=== PATIENT | male | born 1995 | race Caucasian/White ===

== ENCOUNTER → 2017-07-23 14:24 | Emergency (ER) | payer BC ==
[~2017-07-23 14:24] MED LIST: ALPRAZolam TAB* 0.5 MG PO ONE
[2017-07-23 16:08] LABS: Hematocrit 50 % (42-52); Hemoglobin 17.4 g/dl (14.0-18.0); Mean Corpuscular HGB Conc 35 g/dl (31-36); Mean Corpuscular Hemoglobin 33 pg (27-31); Mean Corpuscular Volume 93 fL (80-94); Mean Platelet Volume 9 um3 (7.4-10.4); Red Blood Count 5.35 10^6/ul (4.0-5.4); Red Cell Distribution Width 13 % (10.5-15); White Blood Count 10.8 10^3/ul (3.5-10.8)
[2017-07-23 16:21] LABS: ALT 39 U/L (7-52); AST 22 U/L (13-39); Albumin 4.8 g/dL (3.2-5.2); Alkaline Phosphatase 86 U/L (34-104); Anion Gap 10 mmol/L (2-11); BUN/Creatinine Ratio 15.3 (8-20); Blood Urea Nitrogen 15 mg/dL (6-24); CO2 Carbon Dioxide 21 mmol/L (22-32); Calcium 10.3 mg/dL (8.6-10.3); Chloride 105 mmol/L (101-111); EGFR Non-African American 95.6 (>60); Globulin 3.5 g/dL (2-4); Glucose 90 mg/dL (70-100); Potassium 3.8 mmol/L (3.5-5.0); Sodium 136 mmol/L (133-145); Total Protein 8.3 g/dL (6.4-8.9)
[2017-07-23 16:30] LABS: Acetaminophen < 15 mcg/mL; Alcohol < 10 mg/dL (<10); Salicylate < 2.50 mg/dL (<30)
[2017-07-23 16:33] LABS: Benzodiazepine Urine Screen None Detected (None Detect)
[2017-07-23 16:41] LABS: TSH (Thyroid Stimulating Horm) 2.31 mcIU/mL (0.34-5.60)
[2017-07-23 16:54] VITALS: BP 156/93
[2017-07-23 16:59] LABS: Urine Bacteria Absent (Absent); Urine Bilirubin Negative (Negative); Urine Glucose Negative (Negative); Urine Nitrite Negative (Negative)
--- NOTE | 2017-07-23 20:57 | ED ---
Shannan Santamaria Edward, scribed for Tan Lopez on 07/23/17 at 1444 . Psychiatric Complaint - HPI Summary HPI Summary: 21 y/o male presents to ED c/o gradual onset depression and anxiety for the past 10 days. The symptoms are not alleviated by anything. Pt states he just wants to go home and "get out of his depression and anxiety". No SI. Denies hallucinations. No EtOH use. Non-smoker. FHx anxiety, depression, bipolar disorder. - History Of Current Complaint Chief Complaint: EDMentalHealth Time Seen by Provider: 07/23/17 14:42 Hx Obtained From: Patient Onset/Duration: Gradual Onset, Lasting Days - 10 days, Still Present Character: Depressed, Anxious Associated Signs And Symptoms: Negative: Hallucinating Has Suicidal: Denies: Thoughts - Allergies/Home Medications Allergies/Adverse Reactions: Allergies Allergy/AdvReac Type Severity Reaction Status Date / Time Cat Hair Extract Allergy Eyes Verified 07/23/17 14:28 Itchy/Swollen/Red/Watery PMH/Surg Hx/FS Hx/Imm Hx Previously Healthy: No Infectious Disease History: Denies: Traveled Outside the [place] in Last 30 Days - Family History Known Family History: Positive: Other - Depression, anxiety, bipolar disorder - Social History Occupation: Student Lives: With Family Alcohol Use: None Hx Substance Use: No Substance Use Type: Reports: None Hx Tobacco Use: No Smoking Status (MU): Never Smoked Tobacco Review of Systems Constitutional: Negative Eyes: Negative ENT: Negative Cardiovascular: Negative Respiratory: Negative Gastrointestinal: Negative Genitourinary: Negative Musculoskeletal: Negative Skin: Negative Neurological: Negative Positive: Anxious, Depressed All Other Systems Reviewed And Are Negative: Yes Physical Exam Triage Information Reviewed: Yes Vital Signs On Initial Exam: Initial Vitals Temp Pulse Resp BP Pulse Ox 99.7 F 93 16 157/99 97 07/23/17 14:29 07/23/17 14:29 07/23/17 14:29 07/23/17 14:29 07/23/17 14:29 Vital Signs Reviewed: Yes Appearance: Positive: Well-Appearing, No Pain Distress Skin: Positive: Warm, Skin Color Reflects Adequate Perfusion, Dry Head/Face: Positive: Normal Head/Face Inspection Eyes: Positive: EOMI, PATTI ENT: Positive: Normal ENT inspection Neck: Positive: Supple, Nontender Respiratory/Lung Sounds: Positive: Clear to Auscultation, Breath Sounds Present Cardiovascular: Positive: RRR, Pulses are Symmetrical in both Upper and Lower Extremities Abdomen Description: Positive: Nontender, Soft Bowel Sounds: Positive: Present Musculoskeletal: Positive: Normal, Strength/ROM Intact Neurological: Positive: Normal, Sensory/Motor Intact, Alert, Oriented to Person Place, Time Psychiatric: Positive: Depressed Diagnostics - Vital Signs Vital Signs Temp Pulse Resp BP Pulse Ox 07/23/17 14:29 99.7 F 93 16 157/99 97 - Laboratory Result Diagrams: 07/23/17 15:54 07/23/17 15:54 Lab Statement: Any lab studies that have been ordered have been reviewed, and results considered in the medical decision making process. Course/Dx - Course Assessment/Plan: 21 y/o male presents to ED c/o gradual onset depression and anxiety for the past 10 days. Pt states he just wants to go home and "get out of his depression and anxiety". No SI. Denies hallucinations. No EtOH use. Non- smoker. FHx anxiety, depression, bipolar disorder. PT IS CLEAR FOR MHU EVAL @ 16 :50. After being seen by MHU evaluators, pt will be discharged home. - Differential Dx/Clinical Impression Provider Diagnosis: Depression, Anxiety Discharge - Discharge Plan Condition: Stable Disposition: HOME Prescriptions: Hydroxyzine Pamoate [Vistaril] 25 mg PO TID #20 cap Patient Education Materials: Anxiety (ED) Referrals: Non Staff,Doctor [Primary Care Provider] - The documentation as recorded by the Shannan long Edward accurately reflects the service I personally performed and the decisions made by , Tan Lopez.
== END | disposition home or self-care (01) ==
LOC: ED 14:24
DX: F41.8 Other specified anxiety disorders (principal)
CPT/HCPCS: 36415; 80053; 80307; 80320; 80329; 81003; 81015; 84443; 85025; 99282; A9270-GY; G0480